=== PATIENT | female | born 1985 ===

== ENCOUNTER 2019-08-17 08:59 | Outpatient (CLI) | payer OTHER | END 2019-08-17 09:01 | disposition home or self-care (01) | LOC: SONOGRAMA 08:59 | DX: E04.1 Nontoxic single thyroid nodule (principal) ==

== ENCOUNTER 2021-03-13 09:19 | Outpatient (CLI) | payer OTHER | END 2021-03-13 09:24 | disposition home or self-care (01) | LOC: SONOGRAMA 09:19 | DX: N85.8 Other specified noninflammatory disorders of uterus (principal) ==